=== PATIENT | male | born 1975 | race African-American/Black ===

== ENCOUNTER 2017-07-23 00:44 | Emergency (ER) | payer MEDICAID ==
[~2017-07-23] VITALS: Ht 170.2 cm; Wt 80.1 kg
[2017-07-23 00:56] VITALS: BP 153/97; PULSE 76; RESP 12; TEMP 98.1; O2SAT 100
[2017-07-23] MEDS ORDERED: KETO2CRE TOPICAL (01:28)
--- NOTE | 2017-07-23 01:28 | PD ---
HPI Chief Complaint: Skin Problem Time Seen by Provider: 01:16 Travel History International Travel<30 days: No Contact w/Intl Traveler<30days: No Traveled to known affect area: No History of Present Illness HPI Is a 42-year-old male presents emergency department for evaluation of left foot pain and swelling. 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 He states that he typically walks from his tiptoes and does not wear his orthotic. He states over the past few weeks she's noticed increased swelling to the ball of his left foot. He thinks it might become infected, denies any focalized injury but states it continues to hurt him. He states is happened to him in the past and he was prescribed a cream over a year ago and used it and got better. Denies any fever injury shortness of breath abdominal pain nausea vomiting. States symptoms are mild, gradually worsening, context as above, associated signs symptoms as above. 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 SKIN: Focused skin assessment warm/dry. There are some wet peeling areas in the webspaces of the left foot consistent with a tinea pedis. There are also calluses throughout the plantar surface of his foot particularly on the balls of both feet. Did not appear to be any abscesses or cellulitis on the feet. HEAD: Normocephalic. EYES: No scleral icterus. No injection or drainage. NECK: Supple, trachea midline. No JVD or lymphadenopathy. CARDIOVASCULAR: Regular rate and rhythm without murmurs, gallops, or rubs. RESPIRATORY: Breath sounds equal bilaterally. No accessory muscle use. GASTROINTESTINAL: Abdomen soft, non-tender, nondistended. MUSCULOSKELETAL: No cyanosis, or edema. The left lower extremity is shortened by about 2 inches compared to the right, there is no bony tenderness of either lower extremity. No edema no discrete abscess is no cellulitis. BACK: Nontender without obvious deformity. No CVA tenderness. Data Data Last Documented VS Vital Signs Date Time Temp Pulse Resp B/P (MAP) Pulse Ox O2 Delivery O2 Flow Rate FiO2 07/23/17 01:50 07/23/17 00:56 98.1 76 12 100 Orders Orders Ed Discharge Order (07/23/17 01:25) Tramadol (Ultram) (07/23/17 01:30) MDM Medical Decision Making Medical Screen Exam Complete: Yes Emergency Medical Condition: Yes Differential Diagnosis Chronic left foot pain, tinea pedis, chronic calluses Narrative Course Patient roomed in emergency department, there is some evidence of tinea pedis and chronic calluses but I do not see any evidence of severe infection here. Discussed symptomatic management and need for follow-up with a tuber machine cutter and primary care physician. Discussed return to ED criteria. He is stable for discharge. Diagnosis Primary Impression: Athlete's foot on left Med/Other Pt SpecificInfo: Prescription(s) given Scripts Ketoconazole Topical (Ketoconazole Topical) 2% Cream 1 APPLIC TOPICAL BID for Fungal Infection for 21 Days, #15 GM 1 Refill Prov: Wil Ayala MD 07/23/17 Disposition: DISCHARGE HOME Condition: Stable Wil Ayala MD Jul 23, 2017 01:28
[2017-07-23] MEDS ORDERED: traMADol HCL 50 MG TAB PO ONE (01:30)
== END 2017-07-23 01:53 | disposition home or self-care (01) ==
LOC: PHED 00:44
DX: B35.3 Tinea pedis (principal); Z72.0 Tobacco use
CPT/HCPCS: 99283